=== PATIENT | male | born 1995 | race Caucasian/White ===

== ENCOUNTER 2020-09-13 11:25 | Inpatient (IN) | payer OTHER, SELFPAY ==
[2020-09-13] MEDS ORDERED: Fentanyl 100 MCG/2 ML VIAL ONE ×2 (11:27→11:46)
[2020-09-13] MEDS ORDERED: Midazolam HCl 2 mg/2 ml Vial ONE (11:37)
[2020-09-13] MEDS ORDERED: Iopamidol 370 76% 100 ML VIAL ONE (11:39)
[2020-09-13] MEDS ORDERED: fentaNYL Citrate/PF 2,000 MCG in Sodium Chloride 0.9% 60 ML IV SCH (11:45)
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
[2020-09-13] MEDS ORDERED: Boostrix 0.5 ML (Tdap) VIAL ONE (12:15)
[2020-09-13] MEDS ORDERED: levETIRAcetam in NS 100 ML ONE (12:20)
[2020-09-13] MEDS ORDERED: Lorazepam 2 MG/ML VIAL ONE (12:21)
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
[2020-09-13 12:27] LABS: Hemoglobin 14.4 g/dL (14.0-18.0); Mean Corpuscular HGB CONC 33.9 g/dL (32.0-36.0); Mean Corpuscular Hemoglobin 33.2 pg (27.0-31.0); Mean Corpuscular Volume 98.1 fL (78.0-98.0); Mean Platelet Volume 8.6 fL (7.4-10.4); Platelet Count 191 thou/uL (130-400); RBC Distribution Width 11.4 % (11.5-14.5); Red Blood Cell (RBC) Count 4.33 mill/uL (4.70-6.10); White Blood Cell (WBC) Count 22.8 thou/uL (4.8-10.8)
[2020-09-13 12:35] LABS: INR-International Normal Ratio 1.2; Prothrombin Time 15.5 sec (12.0-14.7)
[2020-09-13 12:41] LABS: Acetaminophen Less than 6.0 mcg/mL (10.0-30.0); Alcohol Less than 10 mg/dL (Less than 10); CK (CPK) 1106 U/L (30-200); Salicylate Less than 8.0 mg/dL (15.0-30.0)
[2020-09-13 12:41] LABS: Actual Bicarbonate (HCO3a) 19.4 mEq/L (22-28); Analyzer IN Cardio ER; Base Excess (BEa) -7.1 mEq/L (-2.0 to +3.0); CO2 Tension 42.6 mmHg (35.0-45.0); Calcium, Ionized (arterial) 1.11 mmol/L (1.12-1.30); Carboxyhemoglobin (COHb) 0.3 gm% (0.0-3.0); Hemoglobin (Hb) 15.2 g/dL (14.0-18.0); O2 Tension (PaO2), arterial 195.5 mmHg (80.0-100.0); pH, Arterial 7.28 (7.35-7.45)
[2020-09-13 12:42] LABS: ALT (SGPT) 135 U/L (8-55); AST (SGOT) 146 U/L (5-34); Albumin 3.4 g/dL (3.5-5.0); Alcohol Less than 10 mg/dL (Less than 10); Alkaline Phosphatase 46 U/L (40-110); Anion Gap 13 mmol/L (10-20); BUN (Urea Nitrogen) 17 mg/dL (8.9-20.6); Bilirubin, Total 0.7 mg/dL (0.2-1.2); Calc. Creatinine Clearance 0 mL/min (70-130); Calcium 7.3 mg/dL (7.8-10.44); Carbon Dioxide 18 mmol/L (22-29); Chloride 106 mmol/L (98-107); Globulin 2.1 g/dL (2.4-3.5); Glucose 123 mg/dL (70-105); Lipase 99 U/L (8-78); Potassium 4.2 mmol/L (3.5-5.1); Protein, Total 5.5 g/dL (6.0-8.3); Sodium 133 mmol/L (136-145)
[2020-09-13 12:42] LABS: Band 18 % (5-11); Eosinophils 1 % (0-10); Lymphocytes 7 % (21-51); MDiff Complete? YES; Metamyelocyte 1 % (0-0); Monocytes 6 % (0-10); Myelocyte 1 % (0-0); Neutrophil 66 % (42-75); PTT 27.9 sec (22.9-36.1); Platelet Morphology Comment Appears Adequate; RBC Morphology Normal
[2020-09-13 12:43] LABS: Puncture Site LRA
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
[2020-09-13 12:49] LABS: Bilirubin Negative (Negative); Blood, Urine 3+ (Negative); Clarity Turbid (Clear); Glucose, Urine (Dipstick) 100 mg/dL (Negative); Ketone, Urine Trace mg/dL (Negative); Leukocyte Negative Leu/uL (Negative); Nitrite Negative (Negative); Protein, Urine (Dipstick) 300 mg/dL (Neg-Trace); RBC/HPF Greater than 50 HPF (0-3); Specific Gravity, Urine 1.016 (1.002-1.036); Squamous Epithelial 0-3 HPF (0-3); Urobilinogen Normal mg/dL (Less than 2); WBC/HPF Greater than 50 HPF (0-3); pH, Urine 6.5 (5.0-9.0)
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
[2020-09-13 12:53] LABS: Amphetamine Not Detected (NotDetected); Barbiturates Screen Not Detected (NotDetected); Benzodiazepine Screen Not Detected (NotDetected); Cocaine Metabolite Screen Not Detected (NotDetected); Medtox Control Line Valid? VALID (VALID); Medtox Reader # READER 4; Methadone Not Detected (NotDetected); Methamphetamine Not Detected (NotDetected); Opiate Screen Not Detected (NotDetected); Oxycodone Screen Not Detected (NotDetected); Phencyclidine (PCP) Not Detected (NotDetected); THC/Cannabinoid Screen Detected (NotDetected); Tricyclic Screen Not Detected (NotDetected)
[2020-09-13 12:58] LABS: Bacteria/HPF None Seen HPF (None Seen)
[2020-09-13 13:27] LABS: SARS-CoV-2 NAA Rapid Test Not Detected (NotDetected)
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
[2020-09-13] MEDS: Sodium Chloride 0.9% 1,000 ML IV SCH (14:30)
[2020-09-13] MEDS ORDERED: Insulin Regular 300 UNITS/3 ML VIAL SC PRN (14:36)
[2020-09-13] MEDS ORDERED: hydrALAZINE 20 MG/ML VIAL SLOW IVP PRN (14:36)
[2020-09-13] MEDS ORDERED: Ondansetron PF 4 MG/2 ML Vial IVP PRN (14:36)
[2020-09-13] MEDS ORDERED: Ventilator Sedation Protocol 1 EACH FS SCH (14:36)
[2020-09-13] MEDS ORDERED: Dextrose 5% in Water 1,000 ML IV PRN (14:36)
[2020-09-13] MEDS ORDERED: Dextrose 50% Abboject 50 ML SYRINGE SLOW IVP PRN (14:36)
[2020-09-13] MEDS ORDERED: Ondansetron ODT 4 MG TAB PO PRN (14:36)
[2020-09-13] MEDS ORDERED: Lorazepam 2 MG/ML VIAL SLOW IVP PRN (14:36)
[2020-09-13] MEDS ORDERED: Morphine 2 MG/ML VIAL SLOW IVP PRN (14:45)
[2020-09-13] MEDS ORDERED: Propofol BOLUS 1,000 MG/100 ML VIAL IV PRN (14:45)
[2020-09-13] MEDS ORDERED: Fentanyl BOLUS 250 ML IVPB PRN (14:45)
[2020-09-13] MEDS ORDERED: DISCONTINUE PREVIOUS NARCOTIC PAIN MEDICATIONS AND BENZODIAZEPINES FS SCH (14:45)
[2020-09-13 15:18] LABS: Actual Bicarbonate (HCO3a) 17.3 mEq/L (22-28); Base Excess (BEa) -7.9 mEq/L (-2.0 to +3.0); CO2 Tension 34.7 mmHg (35.0-45.0); Calcium, Ionized (arterial) 1.13 mmol/L (1.12-1.30); Carboxyhemoglobin (COHb) 0.3 gm% (0.0-3.0); Hemoglobin (Hb) 14.3 g/dL (14.0-18.0); O2 Tension (PaO2), arterial 110.2 mmHg (80.0-100.0); Potassium - ABG Lab 3.81 mmol/L (3.70-5.30); pH, Arterial 7.32 (7.35-7.45)
[2020-09-13 15:21] LABS: Lactic Acid 1.3 mmol/L (0.5-2.2)
[2020-09-13 15:24] LABS: Puncture Site RBA
[2020-09-13 15:25] LABS: ALV-art Gradient 131.625 mmHg (0-20)
[2020-09-13] MEDS ORDERED: Sodium Chloride 0.9% 1,000 ML IV SCH (15:30)
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
[2020-09-13] MEDS: CEFAZOLIN 2 GM in Premix Bag 1 BAG IVPB SCH (20:36)
[2020-09-13] MEDS: Acetaminophen 650 MG/20.3 ML UDCUP PO PRN (20:41)
[2020-09-14] MEDS: levETIRAcetam in NS 1,000 MG in Premix Bag 1 BAG IVPB SCH ×2 (00:21→12:00)
[2020-09-14] MEDS: Sodium Chloride 0.9% 1,000 ML IV SCH ×3 (00:27→15:51)
[2020-09-14] MEDS: fentaNYL Citrate/PF 2,000 MCG in Sodium Chloride 0.9% 60 ML IV SCH ×3 (02:55→23:49)
[2020-09-14] MEDS: Propofol 1,000 MG/100 ML VIAL IV PRN ×2 (02:57→15:48)
[2020-09-14 03:51] LABS: #Eosinphils 0.1 thou/uL (0.0-0.7); #Lymphocytes 1.3 thou/uL (1.20-3.40); #Monocytes 0.7 thou/uL (0.11-0.59); #Neutrophils 7.5 thou/uL (1.40-6.50); %Basophils 0.2 % (0.0-1.0); %Eosinophils 0.7 % (0.0-10.0); %Lymphocytes 13.5 % (21.0-51.0); %Monocytes 7.1 % (0.0-10.0); %Neutrophils 78.5 % (42.0-75.0); Hemoglobin 12.7 g/dL (14.0-18.0); Mean Corpuscular HGB CONC 33.7 g/dL (32.0-36.0); Mean Corpuscular Hemoglobin 33.3 pg (27.0-31.0); Mean Corpuscular Volume 98.9 fL (78.0-98.0); Mean Platelet Volume 9.2 fL (7.4-10.4); Platelet Count 149 thou/uL (130-400); RBC Distribution Width 11.5 % (11.5-14.5); White Blood Cell (WBC) Count 9.6 thou/uL (4.8-10.8)
[2020-09-14 04:05] LABS: Anion Gap 14 mmol/L (10-20); BUN (Urea Nitrogen) 14 mg/dL (8.9-20.6); CK (CPK) 2467 U/L (30-200); Calc. Creatinine Clearance 131 mL/min (70-130); Calcium 7.7 mg/dL (7.8-10.44); Carbon Dioxide 20 mmol/L (22-29); Chloride 110 mmol/L (98-107); Glucose 100 mg/dL (70-105); Magnesium 1.4 mg/dL (1.6-2.6); Phosphorus 3.8 mg/dL (2.3-4.7); Sodium 140 mmol/L (136-145)
[2020-09-14] MEDS: CEFAZOLIN 2 GM in Premix Bag 1 BAG IVPB SCH ×3 (04:28→20:37)
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
[2020-09-14 07:39] LABS: Actual Bicarbonate (HCO3a) 18.1 mEq/L (22-28); Analyzer IN Cardio ER; Base Excess (BEa) -7.2 mEq/L (-2.0 to +3.0); CO2 Tension 35.9 mmHg (35.0-45.0); Calcium, Ionized (arterial) 1.17 mmol/L (1.12-1.30); Carboxyhemoglobin (COHb) 0.4 gm% (0.0-3.0); Hemoglobin (Hb) 13.2 g/dL (14.0-18.0); Potassium - ABG Lab 4.06 mmol/L (3.70-5.30); pH, Arterial 7.32 (7.35-7.45)
--- NOTE | 2020-09-14 08:20 | CT ---
PRELIMINARY REPORT/[facility]/EMERGENCY AFTER HOURS PROCEDURE EXAM: CT Head Without Intravenous Contrast. CLINICAL HISTORY: FOLLOW UP STUDY. TECHNIQUE: Axial computed tomography images of the head/brain without intravenous contrast. COMPARISON: 09/13/2020. FINDINGS: There remains a 1.2 cm area of hyperdensity in the thalamus. This has not changed. There is a small amount of blood identified in the posterior horn of the left lateral ventricle unchanged. There is a few small punctate areas of hyperdensity in the bilateral frontal lobes. The findings have not significantly changed since prior study. There remains soft tissue swelling in the left temporal scalp. The visualized paranasal sinuses and the mastoid or cells remain clear. There are 2 small ra diodensities embedded in the left temporal scalp, glass in these areas as possible. No acute skull fracture. IMPRESSION: There has been no significant change in the appearance of the brain imaging since prior study. There remains a small left thalamus hemorrhage measuring 1.2 cm. There is a an acute slight intraventricular hemorrhage in the posterior horn of the left lateral ventricle. There remains a few small punctate areas of hyperdensity in the bilateral frontal lobes, cerebral contusion is suspected.. ELECTRONICALLY SIGNED BY: Freda Turner DO Sep 14, 2020 3:58:28 AM BELT BACK OPERATOR This report is intended for review by the ordering physician only, in accordance of law. If you recei ve this report in error, please call [facility] at [phone]. FINAL REPORT Final interpretation Head CT without contrast: 09/14/2020 COMPARISON: 09/13/2020. HISTORY: Reevaluate intracranial hemorrhage. FINDINGS: The visualized paranasal sinuses and mastoid air cells appear well-aerated. No displaced calvarial fr acture is noted. Intracranial pressure monitoring device present within the right frontal region. Intra-axial hemorrhage in left thalamus measures 1.3 cm, similar when compared to the prior examinati on, and suspicious for hemorrhagic shear injury. There are punctate scattered foci of hyperdensity within bilateral frontal lobes near the vertex suggesting multiple foci of subtle hemorrhagic shear i njury. There is blood within the posterior horn of the left lateral ventricle, similar when compared to prior imaging. Questionable small volume subarachnoid blood noted near the vertex bilaterally with probable small vo lume subarachnoid blood within the interpeduncular cistern. There are a few radiopaque foreign bodies within the scalp laterally on the left. IMPRESSION: Findings suspicious for multifocal hemorrhagic shear injury, most conspicuous within the left thalamu s, similar when compared to prior imaging. Probable small volume subarachnoid hemorrhage. Blood again seen within the left lateral ventricle. CODE QA Transcribed Date/Time: 09/14/2020 9:00 AM
[2020-09-14] MEDS: Acetaminophen 650 MG/20.3 ML UDCUP PO PRN ×2 (08:27→12:23)
[2020-09-14] MEDS ORDERED: FLU VACC QS2020-21(6MOS UP)/PF 60 MCG/0.5 ML SYRINGE IM ONE (09:00)
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
[2020-09-14] MEDS ORDERED: Vecuronium 10 MG VIAL ONE (09:12)
[2020-09-14] MEDS ORDERED: Vecuronium 10 MG VIAL IVP SCH (09:15)
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
[2020-09-14 11:36] LABS: O2 Tension (PaO2), arterial 58.9 mmHg (80.0-100.0)
[2020-09-14 11:37] LABS: ALV-art Gradient 181.425 mmHg (0-20); Puncture Site LRA
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
[2020-09-14 11:50] LABS: Actual Bicarbonate (HCO3a) 21.2 mEq/L (22-28); Analyzer IN Cardio ER; Base Excess (BEa) -4.8 mEq/L (-2.0 to +3.0); CO2 Tension 42.3 mmHg (35.0-45.0); Calcium, Ionized (arterial) 1.16 mmol/L (1.12-1.30); Carboxyhemoglobin (COHb) 0.3 gm% (0.0-3.0); Hemoglobin (Hb) 13.2 g/dL (14.0-18.0); O2 Tension (PaO2), arterial 99.4 mmHg (80.0-100.0); Potassium - ABG Lab 4.08 mmol/L (3.70-5.30); pH, Arterial 7.32 (7.35-7.45)
[2020-09-14 11:54] LABS: ALV-art Gradient 418.125 mmHg (0-20); Puncture Site RRA
[2020-09-14] MEDS: cefTRIAXone\\ROCEPHIN 1 GM in Sodium Chloride 0.9% 100 ML IVPB SCH (12:04)
[2020-09-14] MEDS ORDERED: Digoxin 0.5 MG/2 ML AMP ONE (12:48)
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
[2020-09-14] MEDS ORDERED: Magnesium Sulfate 3 GM in Sodium Chloride 0.9% 100 ML IVPB SCH (22:00)
[2020-09-15] MEDS: levETIRAcetam in NS 1,000 MG in Premix Bag 1 BAG IVPB SCH ×2 (00:50→13:31)
[2020-09-15] MEDS: Sodium Chloride 0.9% 1,000 ML IV SCH ×3 (00:51→18:05)
[2020-09-15] MEDS: Propofol 1,000 MG/100 ML VIAL IV PRN ×3 (02:35→20:07)
[2020-09-15] MEDS: CEFAZOLIN 2 GM in Premix Bag 1 BAG IVPB SCH ×3 (03:04→20:07)
[2020-09-15 04:14] LABS: #Eosinphils 0.3 thou/uL (0.0-0.7); #Lymphocytes 0.9 thou/uL (1.20-3.40); #Monocytes 0.4 thou/uL (0.11-0.59); #Neutrophils 6.1 thou/uL (1.40-6.50); %Basophils 0.1 % (0.0-1.0); %Eosinophils 3.8 % (0.0-10.0); %Lymphocytes 11.6 % (21.0-51.0); %Neutrophils 79.6 % (42.0-75.0); Hemoglobin 10.7 g/dL (14.0-18.0); Mean Corpuscular HGB CONC 33.8 g/dL (32.0-36.0); Mean Corpuscular Hemoglobin 33.2 pg (27.0-31.0); Mean Corpuscular Volume 98.3 fL (78.0-98.0); Mean Platelet Volume 9.8 fL (7.4-10.4); Platelet Count 105 thou/uL (130-400); Platelet Morphology Comment Appears Decreased; RBC Distribution Width 11.3 % (11.5-14.5); Red Blood Cell (RBC) Count 3.21 mill/uL (4.70-6.10); White Blood Cell (WBC) Count 7.6 thou/uL (4.8-10.8)
[2020-09-15 04:18] LABS: Anion Gap 12 mmol/L (10-20); BUN (Urea Nitrogen) 7 mg/dL (8.9-20.6); CK (CPK) 1389 U/L (30-200); Calc. Creatinine Clearance 157 mL/min (70-130); Carbon Dioxide 22 mmol/L (22-29); Chloride 108 mmol/L (98-107); Glucose 116 mg/dL (70-105); Phosphorus 1.4 mg/dL (2.3-4.7); Potassium 4.3 mmol/L (3.5-5.1); Sodium 138 mmol/L (136-145)
[2020-09-15] MEDS ORDERED: MAGNESIUM IVPB SCH (05:30)
[2020-09-15] MEDS ORDERED: Sodium Phosphate 30 MMOL in Sodium Chloride 0.9% 250 ML 250 ML IVPB SCH (06:00)
--- NOTE | 2020-09-15 09:03 | RAD ---
PORTABLE CHEST 1 VIEW: Date: 09/15/2020 Time: 0451 hours HISTORY: Left-sided chest tube. FINDINGS/IMPRESSION: Allowing for differences in technique, no significant interval change is seen since the previous day' s exam. POS: HILARIO
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
--- NOTE | 2020-09-15 10:17 | PRG ---
DATE OF SERVICE: 09/15/2020 The patient is seen and examined. I agree with Kelli Cates's evaluation on 09/15/2020. While on sedation, Mr. Patel has an ICP in the low teens or below. Off sedation, he does follow commands, but is extremely agitated and wild at all 4 extremities in a purposeful fashion. We removed the ICP monitor today. He will be weaned from the ventilator as appropriate by the Trauma Service. His cervical spine can likely be cleared clinically once he is alert enough to cooperate with exam. Job ID: [id number]
[2020-09-15] MEDS: cefTRIAXone\\ROCEPHIN 1 GM in Sodium Chloride 0.9% 100 ML IVPB SCH (10:37)
[2020-09-15] MEDS: Acetaminophen 650 MG/20.3 ML UDCUP PO PRN ×2 (10:37→22:24)
[2020-09-15] MEDS: fentaNYL Citrate/PF 2,000 MCG in Sodium Chloride 0.9% 60 ML IV SCH (12:16)
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
[2020-09-16] MEDS: levETIRAcetam in NS 1,000 MG in Premix Bag 1 BAG IVPB SCH ×3 (00:37→23:40)
[2020-09-16] MEDS: Sodium Chloride 0.9% 1,000 ML IV SCH ×3 (00:40→17:17)
[2020-09-16] MEDS: fentaNYL Citrate/PF 2,000 MCG in Sodium Chloride 0.9% 60 ML IV SCH ×2 (00:44→13:43)
[2020-09-16] MEDS: Lorazepam 2 MG/ML VIAL SLOW IVP PRN ×2 (00:55→08:50)
[2020-09-16 04:05] LABS: #Eosinphils 0.4 thou/uL (0.0-0.7); #Lymphocytes 0.7 thou/uL (1.20-3.40); #Monocytes 0.4 thou/uL (0.11-0.59); #Neutrophils 4.4 thou/uL (1.40-6.50); %Basophils 0.4 % (0.0-1.0); %Eosinophils 6.5 % (0.0-10.0); %Lymphocytes 11.8 % (21.0-51.0); %Monocytes 5.9 % (0.0-10.0); %Neutrophils 75.4 % (42.0-75.0); Mean Corpuscular HGB CONC 32.9 g/dL (32.0-36.0); Mean Corpuscular Hemoglobin 32.8 pg (27.0-31.0); Mean Corpuscular Volume 99.7 fL (78.0-98.0); Mean Platelet Volume 9.8 fL (7.4-10.4); Platelet Count 98 thou/uL (130-400); RBC Distribution Width 11.5 % (11.5-14.5); Red Blood Cell (RBC) Count 2.73 mill/uL (4.70-6.10); White Blood Cell (WBC) Count 5.8 thou/uL (4.8-10.8)
[2020-09-16] MEDS: Propofol 1,000 MG/100 ML VIAL IV PRN ×2 (04:12→12:36)
[2020-09-16] MEDS: CEFAZOLIN 2 GM in Premix Bag 1 BAG IVPB SCH (04:12)
[2020-09-16 04:58] LABS: Anion Gap 11 mmol/L (10-20); BUN (Urea Nitrogen) 8 mg/dL (8.9-20.6); Calc. Creatinine Clearance 167 mL/min (70-130); Carbon Dioxide 23 mmol/L (22-29); Chloride 110 mmol/L (98-107); Glucose 99 mg/dL (70-105); Magnesium 1.6 mg/dL (1.6-2.6); Phosphorus 1.7 mg/dL (2.3-4.7); Potassium 3.6 mmol/L (3.5-5.1); Sodium 140 mmol/L (136-145)
--- NOTE | 2020-09-16 07:13 | PRG ---
DATE OF SERVICE: 09/16/2020 The patient has not had any overnight events. Off sedation, he continues to move all 4s. He is purposeful and follow some commands. There are plans to take him for surgery with Dr. Truong for his hand. Hopefully, he can be extubated following the surgery. Job ID: [id number]
[2020-09-16] MEDS ORDERED: Potassium Phosphate 30 MMOL in Sodium Chloride 0.9% 250 ML 250 ML IVPB SCH (08:15)
[2020-09-16] MEDS ORDERED: Magnesium 2 GM/50 ML 2 GM in Premix Bag 1 BAG IVPB SCH (08:15)
[2020-09-16] MEDS: Famotidine/PF 20 mg/2ml Vial SLOW IVP SCH ×2 (08:50→22:43)
--- NOTE | 2020-09-16 10:40 | RAD ---
EXAM: XR Chest 1 View Portable PROVIDED CLINICAL HISTORY: Follow-up left chest tube. COMPARISON: 09/15/2020 FINDINGS: Nasogastric tube, endotracheal tube, and left-sided thoracostomy tube remain in place and unchanged i n position. No obvious left-sided pneumothorax is seen, and no left pleural effusion is identified. Parenchymal density is seen in the retrocardiac region left lung base which may represent aspiration pneumonitis, atelectasis, or pneumonia. Opacity is also again seen at the right lung base which may represent aspiration pneumonitis and/or volume loss. No other interval change. IMPRESSION: 1. Lines and tubes remain unchanged in position. No left-sided pneumothorax is seen. 2. Bibasilar parenchymal opacities which may represent volume loss and/or aspiration pneumonitis.
[2020-09-16] MEDS: cefTRIAXone\\ROCEPHIN 1 GM in Sodium Chloride 0.9% 100 ML IVPB SCH (11:18)
[2020-09-16] MEDS ORDERED: Sodium Chloride 0.9% 10 ML ONE ×2 (11:46→20:00)
[2020-09-16] MEDS: Acetaminophen 650 MG/20.3 ML UDCUP PO PRN (13:46)
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
[2020-09-16] MEDS ORDERED: Rocuronium Bromide 10 MG/ML (10ML VIAL) ONE (14:28)
[2020-09-16] MEDS ORDERED: Glycopyrrolate 0.2 MG/ML 5 ML SYRINGE ONE (14:28)
[2020-09-16] MEDS ORDERED: Ondansetron PF 4 MG/2 ML Vial ONE (14:28)
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
[2020-09-16] MEDS ORDERED: Thrombin 5000 UNITS/5 ML VIAL ONE (19:59)
[2020-09-16] MEDS ORDERED: Bupivacaine PF 0.5% 30 ML VIAL ONE (19:59)
[2020-09-16] MEDS ORDERED: Bacitracin Zinc Ointment 30 gm TUBE ONE (19:59)
[2020-09-16] MEDS ORDERED: Ketamine 50 MG/ML (10ML VIAL) ONE (20:31)
[2020-09-17] MEDS: Sodium Chloride 0.9% 1,000 ML IV SCH ×3 (01:22→19:16)
[2020-09-17 04:07] LABS: #Eosinphils 0.7 thou/uL (0.0-0.7); #Lymphocytes 1.2 thou/uL (1.20-3.40); #Monocytes 0.4 thou/uL (0.11-0.59); #Neutrophils 4.5 thou/uL (1.40-6.50); %Basophils 0.4 % (0.0-1.0); %Eosinophils 9.8 % (0.0-10.0); %Lymphocytes 18.2 % (21.0-51.0); %Monocytes 5.5 % (0.0-10.0); Hemoglobin 9.8 g/dL (14.0-18.0); Mean Corpuscular HGB CONC 32.7 g/dL (32.0-36.0); Mean Corpuscular Hemoglobin 33.1 pg (27.0-31.0); Platelet Count 81 thou/uL (130-400); RBC Distribution Width 11.4 % (11.5-14.5); Red Blood Cell (RBC) Count 2.97 mill/uL (4.70-6.10); White Blood Cell (WBC) Count 6.8 thou/uL (4.8-10.8)
[2020-09-17 04:25] LABS: Anion Gap 17 mmol/L (10-20); BUN (Urea Nitrogen) 8 mg/dL (8.9-20.6); Calc. Creatinine Clearance 170 mL/min (70-130); Carbon Dioxide 19 mmol/L (22-29); Chloride 112 mmol/L (98-107); Glucose 101 mg/dL (70-105); Magnesium 1.7 mg/dL (1.6-2.6); Phosphorus 3.2 mg/dL (2.3-4.7); Potassium 4.3 mmol/L (3.5-5.1); Sodium 144 mmol/L (136-145)
[2020-09-17] MEDS: Acetaminophen 650 MG/20.3 ML UDCUP PO PRN (04:30)
[2020-09-17] MEDS ORDERED: Lorazepam 2 MG/ML VIAL ONE ×2 (05:38→09:27)
[2020-09-17] MEDS: fentaNYL Citrate/PF 2,000 MCG in Sodium Chloride 0.9% 60 ML IV SCH ×2 (06:22→19:20)
[2020-09-17 07:25] LABS: Actual Bicarbonate (HCO3a) 23.2 mEq/L (22-28); CO2 Tension 41.8 mmHg (35.0-45.0); Calcium, Ionized (arterial) 1.15 mmol/L (1.12-1.30); Carboxyhemoglobin (COHb) 0.3 gm% (0.0-3.0); Hemoglobin (Hb) 10.6 g/dL (14.0-18.0); Potassium - ABG Lab 3.85 mmol/L (3.70-5.30); pH, Arterial 7.36 (7.35-7.45)
[2020-09-17 07:29] LABS: Puncture Site RRA
[2020-09-17] MEDS ORDERED: Sodium Phosphate 15 MMOL in Sodium Chloride 0.9% 250 ML 250 ML IVPB SCH (07:45)
[2020-09-17] MEDS ORDERED: Magnesium 2 GM/50 ML 2 GM in Premix Bag 1 BAG IVPB SCH (07:45)
--- NOTE | 2020-09-17 07:58 | PRG ---
DATE OF SERVICE: 09/17/2020 The patient remains stable in the ICU. Yesterday, he did have his hand repaired surgically by Dr. Truong. He has still not been extubated at this time, but there are plans to possibly do this later today. Unfortunately, his exam is quite limited today because he has recently received additional sedation. Nursing reports off sedation. The patient wakes up, will follow some commands, but is quite combative and attempts to pull out his tubing. Hopefully he can be extubated later today. He should not recieve any anticoagulation for the next 2 weeks. Job ID: [id number] [facility]
--- NOTE | 2020-09-17 08:20 | RAD ---
EXAM: Chest one view: HISTORY: Low oxygen saturation, left chest tube COMPARISON: 09/13/2020 FINDINGS: NG tube, endotracheal tube, left chest tubes remain in place. Heart size: Within normal limits. Lungs: Progressive bilateral pleural effusions and bilateral alveolar parenchymal changes throughout both lungs No significant new process. No significant pneumothorax. IMPRESSION: Worsening bilateral pleural effusions and bilateral diffuse alveolar opacity changes throughout both lungs. Continued short-term follow-up.
[2020-09-17] MEDS: Saccharomyces boulardii 250 MG CAP PO SCH ×2 (08:37→19:16)
[2020-09-17] MEDS: Famotidine/PF 20 mg/2ml Vial SLOW IVP SCH ×2 (08:37→19:16)
--- NOTE | 2020-09-17 09:11 | PRG ---
DATE OF SERVICE: 09/17/2020 Mr. Patel is sedated due to discomfort, but does sluggishly open his eyes and moves all fours briskly. The nurse reports that off sedation, he continues to follow commands. From a neurosurgical perspective, no further intervention is planned. We will arrange follow up head CT in 4 weeks. He can otherwise be mobilized. He currently remains intubated for pulmonary reasons. With respect to anticoagulation, I would recommend holding off on this for 2 weeks if possible and suspect by that time, he will be ambulatory. Job ID: [id number]
[2020-09-17] MEDS ORDERED: Lorazepam 2 MG/ML VIAL SLOW IVP SCH (09:30)
[2020-09-17] MEDS: Propofol 1,000 MG/100 ML VIAL IV PRN ×2 (09:40→17:50)
[2020-09-17] MEDS ORDERED: Iopamidol-370 76% 500 ML 1 ML ONE (10:17)
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
[2020-09-17] MEDS: cefTRIAXone\\ROCEPHIN 1 GM in Sodium Chloride 0.9% 100 ML IVPB SCH (11:08)
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
[2020-09-17] MEDS: levETIRAcetam in NS 1,000 MG in Premix Bag 1 BAG IVPB SCH (13:39)
[2020-09-17 15:02] LABS: Actual Bicarbonate (HCO3a) 22.6 mEq/L (22-28); Base Excess (BEa) -1.5 mEq/L (-2.0 to +3.0); CO2 Tension 35.4 mmHg (35.0-45.0); Calcium, Ionized (arterial) 1.12 mmol/L (1.12-1.30); Carboxyhemoglobin (COHb) 0.3 gm% (0.0-3.0); Hemoglobin (Hb) 10.1 g/dL (14.0-18.0); O2 Tension (PaO2), arterial 88.3 mmHg (80.0-100.0); pH, Arterial 7.42 (7.35-7.45)
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
[2020-09-18] MEDS: Propofol 1,000 MG/100 ML VIAL IV PRN ×5 (00:27→20:52)
[2020-09-18] MEDS: levETIRAcetam in NS 1,000 MG in Premix Bag 1 BAG IVPB SCH ×2 (00:27→13:00)
[2020-09-18] MEDS: Sodium Chloride 0.9% 1,000 ML IV SCH ×3 (03:29→22:38)
[2020-09-18 04:02] LABS: #Eosinphils 0.6 thou/uL (0.0-0.7); #Lymphocytes 1.3 thou/uL (1.20-3.40); #Monocytes 0.6 thou/uL (0.11-0.59); #Neutrophils 4.2 thou/uL (1.40-6.50); %Basophils 0.1 % (0.0-1.0); %Eosinophils 8.5 % (0.0-10.0); %Lymphocytes 19.2 % (21.0-51.0); %Monocytes 9.7 % (0.0-10.0); %Neutrophils 62.5 % (42.0-75.0); Hemoglobin 9.5 g/dL (14.0-18.0); Mean Corpuscular HGB CONC 34.1 g/dL (32.0-36.0); Mean Corpuscular Hemoglobin 33.3 pg (27.0-31.0); Mean Corpuscular Volume 97.8 fL (78.0-98.0); Mean Platelet Volume 8.4 fL (7.4-10.4); Platelet Count 171 thou/uL (130-400); RBC Distribution Width 11.5 % (11.5-14.5); Red Blood Cell (RBC) Count 2.85 mill/uL (4.70-6.10); White Blood Cell (WBC) Count 6.6 thou/uL (4.8-10.8)
[2020-09-18 04:03] LABS: Anion Gap 14 mmol/L (10-20); BUN (Urea Nitrogen) 10 mg/dL (8.9-20.6); Calc. Creatinine Clearance 185 mL/min (70-130); Calcium 7.9 mg/dL (7.8-10.44); Carbon Dioxide 20 mmol/L (22-29); Chloride 111 mmol/L (98-107); Glucose 110 mg/dL (70-105); Magnesium 1.6 mg/dL (1.6-2.6); Phosphorus 2.9 mg/dL (2.3-4.7); Potassium 3.6 mmol/L (3.5-5.1); Sodium 141 mmol/L (136-145)
[2020-09-18] MEDS: fentaNYL Citrate/PF 2,000 MCG in Sodium Chloride 0.9% 60 ML IV SCH ×2 (05:14→16:32)
[2020-09-18] MEDS ORDERED: Magnesium 2 GM/50 ML 2 GM in Premix Bag 1 BAG IVPB SCH (06:15)
[2020-09-18] MEDS ORDERED: Heparin 0 ML ONE (06:18)
[2020-09-18] MEDS ORDERED: Potassium Phosphate 15 MMOL in Sodium Chloride 0.9% 250 ML 250 ML IVPB SCH (06:30)
--- NOTE | 2020-09-18 08:19 | RAD ---
PORTABLE CHEST: HISTORY: Pneumonia followup. COMPARISON: 09/17/2020. FINDINGS/IMPRESSION: Hazy alveolar infiltrate in the right lower lung and infrahilar region is slightly more prominent tod ay. Left lung is better aerated and appears improved today, although there is some persistent left b asilar atelectasis or infiltrate. Probable small effusions. POS: [facility]
[2020-09-18 08:25] LABS: Actual Bicarbonate (HCO3a) 24.6 mEq/L (22-28); Base Excess (BEa) 0.9 mEq/L (-2.0 to +3.0); CO2 Tension 35.4 mmHg (35.0-45.0); Calcium, Ionized (arterial) 1.13 mmol/L (1.12-1.30); Carboxyhemoglobin (COHb) 0.3 gm% (0.0-3.0); Hemoglobin (Hb) 9.9 g/dL (14.0-18.0); O2 Tension (PaO2), arterial 67.5 mmHg (80.0-100.0); Potassium - ABG Lab 3.75 mmol/L (3.70-5.30); pH, Arterial 7.46 (7.35-7.45)
[2020-09-18 08:27] LABS: Puncture Site RRA
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
[2020-09-18] MEDS: Famotidine/PF 20 mg/2ml Vial SLOW IVP SCH ×2 (08:42→20:54)
[2020-09-18] MEDS: Polyethylene Glycol 3350 17 GM Packet PO SCH (08:42)
[2020-09-18] MEDS: Acetaminophen 650 MG/20.3 ML UDCUP PO SCH ×4 (08:42→20:54)
[2020-09-18] MEDS: Senokot S 8.6-50 MG TAB PO SCH ×2 (08:43→20:54)
[2020-09-18] MEDS: Saccharomyces boulardii 250 MG CAP PO SCH ×2 (08:43→20:54)
[2020-09-18] MEDS ORDERED: Iopamidol 370 76% 50 ML VIAL FS ONE (10:14)
[2020-09-18] MEDS: cefTRIAXone\\ROCEPHIN 1 GM in Sodium Chloride 0.9% 100 ML IVPB SCH (10:19)
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
[2020-09-19] MEDS: levETIRAcetam in NS 1,000 MG in Premix Bag 1 BAG IVPB SCH ×2 (00:39→12:48)
[2020-09-19] MEDS: Acetaminophen 650 MG/20.3 ML UDCUP PO SCH ×5 (00:40→16:52)
[2020-09-19] MEDS: Propofol 1,000 MG/100 ML VIAL IV PRN ×2 (01:10→07:22)
[2020-09-19 03:54] LABS: #Eosinphils 0.5 thou/uL (0.0-0.7); #Lymphocytes 1.4 thou/uL (1.20-3.40); #Monocytes 0.8 thou/uL (0.11-0.59); #Neutrophils 3.9 thou/uL (1.40-6.50); %Basophils 0.2 % (0.0-1.0); %Eosinophils 8.2 % (0.0-10.0); %Lymphocytes 21.1 % (21.0-51.0); %Monocytes 11.5 % (0.0-10.0); Hemoglobin 10.1 g/dL (14.0-18.0); Mean Corpuscular Hemoglobin 33.1 pg (27.0-31.0); Mean Corpuscular Volume 97.3 fL (78.0-98.0); Mean Platelet Volume 8.8 fL (7.4-10.4); Platelet Count 174 thou/uL (130-400); RBC Distribution Width 11.7 % (11.5-14.5); Red Blood Cell (RBC) Count 3.05 mill/uL (4.70-6.10); White Blood Cell (WBC) Count 6.7 thou/uL (4.8-10.8)
[2020-09-19 04:23] LABS: Anion Gap 14 mmol/L (10-20); BUN (Urea Nitrogen) 14 mg/dL (8.9-20.6); Calc. Creatinine Clearance 185 mL/min (70-130); Carbon Dioxide 19 mmol/L (22-29); Chloride 113 mmol/L (98-107); Glucose 106 mg/dL (70-105); Magnesium 1.8 mg/dL (1.6-2.6); Phosphorus 3.9 mg/dL (2.3-4.7); Potassium 3.9 mmol/L (3.5-5.1); Sodium 142 mmol/L (136-145)
[2020-09-19] MEDS: fentaNYL Citrate/PF 2,000 MCG in Sodium Chloride 0.9% 60 ML IV SCH (04:30)
[2020-09-19] MEDS: Sodium Chloride 0.9% 1,000 ML IV SCH (04:31)
[2020-09-19] MEDS: Furosemide 20 MG/2 ML VIAL SLOW IVP SCH ×2 (08:14→16:27)
[2020-09-19] MEDS: Famotidine/PF 20 mg/2ml Vial SLOW IVP SCH ×2 (08:15→20:49)
[2020-09-19] MEDS: Saccharomyces boulardii 250 MG CAP PO SCH ×2 (08:15→20:50)
[2020-09-19] MEDS: Polyethylene Glycol 3350 17 GM Packet PO SCH (08:15)
[2020-09-19] MEDS: Senokot S 8.6-50 MG TAB PO SCH ×2 (08:15→20:50)
--- NOTE | 2020-09-19 08:54 | RAD ---
SEMIUPRIGHT FRONTAL CHEST: Date: 09/19/2020 COMPARISON: 09/18/2020. HISTORY: Pneumonia. FINDINGS: Stable endotracheal tube, nasogastric tube, and left-sided chest tube. Heart and mediastinal contours are stable. No discrete pneumothorax is evident on this examination. There is hazy nonspecific bibasilar air spac e disease, improved when compared to the prior exam. There are multiple incompletely assessed left-sided rib fractures. The osseous structures are not opt imally assessed on this examination. IMPRESSION: Stable lines and tubes. No discrete pneumothorax. There is hazy density in the lung bases suggesting a combination of air space disease and pleural fluid, improved. Continued follow-up is advised. POS: [facility]
[2020-09-19] MEDS: cefTRIAXone\\ROCEPHIN 1 GM in Sodium Chloride 0.9% 100 ML IVPB SCH (09:53)
[2020-09-19] MEDS ORDERED: Furosemide 20 MG/2 ML VIAL SLOW IVP SCH (12:00)
--- NOTE | 2020-09-19 12:13 | RAD ---
EXAM: 1 view chest PROVIDED CLINICAL HISTORY: Dobbhoff feeding tube placement. COMPARISON: Chest x-ray on 09/19/2020 FINDINGS: Left-sided thoracostomy tube remains in place and unchanged in and position. Endotracheal tube and na sogastric tube have been removed. A Dobbhoff feeding tube is now noted in place which is coiled overlying the left upper quadrant with tip overlying the body of the stomach. Airspace opacity is seen overlying the right lung base with patchy airspace opacity seen in the perih ilar regions and in the region of the lingula. No obvious pneumothorax is appreciated on this exam. Small right pleural effusion is again seen. Posterior left-sided rib fractures are again noted. No ot her interval change. IMPRESSION: 1. Interval placement of Dobbhoff feeding tube which is coiled overlying the left quadrant with tip o verlying the body of the stomach. 2. Bilateral patchy airspace opacities and right pleural effusion persist. 3. Endotracheal tube and nasogastric tubes have been removed.
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
[2020-09-19] MEDS ORDERED: Fentanyl 100 MCG/2 ML VIAL ONE (14:12)
[2020-09-19] MEDS ORDERED: Fentanyl 100 MCG/2 ML VIAL SLOW IVP SCH ×2 (14:15→19:15)
--- NOTE | 2020-09-19 14:36 | RAD ---
PORTABLE SUPINE CHEST: 09/19/20 INDICATIONS: Chest tube removal. COMPARISON: 09/19/20, 11:59 a.m. FINDINGS/IMPRESSION: The left chest tube has been removed. No evidence of significant pneumothorax identified. Lungs appea r aerated and clear with no significant interval change noted. Hazy atelectasis and/or infiltrate in the lower lung contreras appear stable. NG tube is unchanged. POS: [facility]
[2020-09-19] MEDS ORDERED: Diazepam 10 MG/2 ML SYRINGE IVP SCH (17:45)
[2020-09-19] MEDS ORDERED: Fentanyl 100 MCG/2 ML VIAL SLOW IVP PRN (19:00)
[2020-09-19] MEDS: Gabapentin 300 MG CAP PO SCH (20:49)
[2020-09-19] MEDS: Morphine 2 MG/ML VIAL SLOW IVP PRN (22:19)
[2020-09-20] MEDS: Acetaminophen 500 MG TAB PO SCH ×5 (00:29→23:29)
[2020-09-20] MEDS: traMADol HCl 50 MG TAB PO SCH ×5 (00:30→23:28)
[2020-09-20] MEDS: Furosemide 20 MG/2 ML VIAL SLOW IVP SCH ×3 (00:33→15:45)
[2020-09-20] MEDS: levETIRAcetam in NS 1,000 MG in Premix Bag 1 BAG IVPB SCH ×3 (00:33→23:29)
[2020-09-20 02:49] LABS: #Eosinphils 0.5 thou/uL (0.0-0.7); #Lymphocytes 1.2 thou/uL (1.20-3.40); #Monocytes 0.9 thou/uL (0.11-0.59); #Neutrophils 8.2 thou/uL (1.40-6.50); %Basophils 0.3 % (0.0-1.0); %Eosinophils 4.4 % (0.0-10.0); %Lymphocytes 10.9 % (21.0-51.0); %Monocytes 8.3 % (0.0-10.0); %Neutrophils 76.2 % (42.0-75.0); Mean Corpuscular HGB CONC 33.6 g/dL (32.0-36.0); Mean Corpuscular Hemoglobin 32.6 pg (27.0-31.0); Mean Corpuscular Volume 97.1 fL (78.0-98.0); Mean Platelet Volume 8.3 fL (7.4-10.4); Platelet Count 253 thou/uL (130-400); RBC Distribution Width 11.6 % (11.5-14.5); Red Blood Cell (RBC) Count 3.38 mill/uL (4.70-6.10); White Blood Cell (WBC) Count 10.8 thou/uL (4.8-10.8)
[2020-09-20 03:17] LABS: Anion Gap 19 mmol/L (10-20); BUN (Urea Nitrogen) 12 mg/dL (8.9-20.6); Calc. Creatinine Clearance 0 mL/min (70-130); Calcium 8.9 mg/dL (7.8-10.44); Carbon Dioxide 23 mmol/L (22-29); Chloride 104 mmol/L (98-107); Glucose 101 mg/dL (70-105); Magnesium 1.6 mg/dL (1.6-2.6); Phosphorus 4.8 mg/dL (2.3-4.7); Potassium 3.5 mmol/L (3.5-5.1); Sodium 142 mmol/L (136-145)
[2020-09-20] MEDS ORDERED: Magnesium Sulfate 3 GM in Sodium Chloride 0.9% 250 ML 250 ML IVPB SCH (04:00)
[2020-09-20] MEDS ORDERED: Potassium Chloride 20 MEQ TAB PO SCH (07:30)
[2020-09-20] MEDS ORDERED: Magnesium 2 GM/50 ML 2 GM in Premix Bag 1 BAG IVPB SCH (07:30)
--- NOTE | 2020-09-20 08:18 | RAD ---
Chest AP view INDICATION: History of follow-up exam COMPARISON: September 19, 2020 FINDINGS: Lungs: The bilateral lower lobe airspace opacities persist, right greater than left. Cardiac silhouette: Heart size is within normal limits. Pulmonary vasculature: Normal Pleural spaces: No pleural effusion or pneumothorax is demonstrated. Upper abdomen: Dobbhoff feeding tube tip is cold in the body with the tip in the region of the gastr ic fundus. There is partial visualization of an IVC filter. Osseous structures: Osseous structures are unchanged. Additional findings: None. IMPRESSION: 1. Persistent bilateral lower lobe airspace opacities, right greater than left. 2. Dobbhoff feeding tube tip coiled in the gastric body with the tip in the region of the gastric fu ndus. 3. Partial visualization of an IVC filter. 4. No pneumothorax.
[2020-09-20] MEDS: Morphine 2 MG/ML VIAL SLOW IVP PRN ×3 (08:29→19:55)
[2020-09-20] MEDS: Polyethylene Glycol 3350 17 GM Packet PO SCH (08:43)
[2020-09-20] MEDS: Senokot S 8.6-50 MG TAB PO SCH ×2 (08:43→20:08)
[2020-09-20] MEDS: Gabapentin 300 MG CAP PO SCH ×2 (08:44→20:08)
[2020-09-20] MEDS: Saccharomyces boulardii 250 MG CAP PO SCH ×2 (08:44→20:07)
[2020-09-20] MEDS: Famotidine/PF 20 mg/2ml Vial SLOW IVP SCH (08:45)
[2020-09-20] MEDS: cefTRIAXone\\ROCEPHIN 1 GM in Sodium Chloride 0.9% 100 ML IVPB SCH (10:17)
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
[2020-09-20 16:41] LABS: Anion Gap 15 mmol/L (10-20); BUN (Urea Nitrogen) 13 mg/dL (8.9-20.6); Calc. Creatinine Clearance 136 mL/min (70-130); Calcium 9.5 mg/dL (7.8-10.44); Carbon Dioxide 30 mmol/L (22-29); Chloride 100 mmol/L (98-107); Glucose 112 mg/dL (70-105); Magnesium 2.1 mg/dL (1.6-2.6); Phosphorus 4.5 mg/dL (2.3-4.7); Potassium 3.8 mmol/L (3.5-5.1); Sodium 141 mmol/L (136-145)
[2020-09-20] MEDS: Famotidine 20 MG TAB PER TUBE SCH (20:07)
[2020-09-21] MEDS: Furosemide 20 MG/2 ML VIAL SLOW IVP SCH (00:56)
[2020-09-21 04:36] LABS: #Eosinphils 0.7 thou/uL (0.0-0.7); #Lymphocytes 1.7 thou/uL (1.20-3.40); #Monocytes 0.9 thou/uL (0.11-0.59); #Neutrophils 7.1 thou/uL (1.40-6.50); %Basophils 0.2 % (0.0-1.0); %Eosinophils 6.8 % (0.0-10.0); %Lymphocytes 15.8 % (21.0-51.0); %Monocytes 8.9 % (0.0-10.0); %Neutrophils 68.3 % (42.0-75.0); Hemoglobin 12.8 g/dL (14.0-18.0); Mean Corpuscular HGB CONC 33.3 g/dL (32.0-36.0); Mean Corpuscular Hemoglobin 32.3 pg (27.0-31.0); Mean Platelet Volume 8.1 fL (7.4-10.4); Platelet Count 348 thou/uL (130-400); RBC Distribution Width 11.8 % (11.5-14.5); Red Blood Cell (RBC) Count 3.96 mill/uL (4.70-6.10); White Blood Cell (WBC) Count 10.4 thou/uL (4.8-10.8)
[2020-09-21 04:42] LABS: Anion Gap 17 mmol/L (10-20); BUN (Urea Nitrogen) 20 mg/dL (8.9-20.6); Calc. Creatinine Clearance 145 mL/min (70-130); Calcium 9.5 mg/dL (7.8-10.44); Carbon Dioxide 27 mmol/L (22-29); Chloride 101 mmol/L (98-107); Glucose 137 mg/dL (70-105); Magnesium 2.1 mg/dL (1.6-2.6); Phosphorus 5.1 mg/dL (2.3-4.7); Potassium 3.8 mmol/L (3.5-5.1); Sodium 141 mmol/L (136-145)
[2020-09-21] MEDS: traMADol HCl 50 MG TAB PO SCH ×5 (05:13→23:21)
[2020-09-21] MEDS: Acetaminophen 500 MG TAB PO SCH ×4 (05:14→23:20)
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
[2020-09-21] MEDS: Morphine 2 MG/ML VIAL SLOW IVP PRN (07:19)
[2020-09-21] MEDS: Gabapentin 300 MG CAP PO SCH ×2 (10:08→22:11)
[2020-09-21] MEDS: Famotidine 20 MG TAB PER TUBE SCH ×2 (10:08→22:12)
[2020-09-21] MEDS: Senokot S 8.6-50 MG TAB PO SCH ×2 (10:08→22:12)
[2020-09-21] MEDS: Polyethylene Glycol 3350 17 GM Packet PO SCH (10:09)
[2020-09-21] MEDS: Saccharomyces boulardii 250 MG CAP PO SCH ×2 (10:09→22:10)
[2020-09-21] MEDS: cefTRIAXone\\ROCEPHIN 1 GM in Sodium Chloride 0.9% 100 ML IVPB SCH (10:09)
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
[2020-09-21] MEDS: levETIRAcetam in NS 1,000 MG in Premix Bag 1 BAG IVPB SCH ×2 (13:08→23:21)
--- NOTE | 2020-09-21 14:51 | EKG ---
Test Reason : Blood Pressure : / mmHG Vent. Rate : 074 BPM Atrial Rate : 072 BPM P-R Int : 122 ms QRS Dur : 082 ms QT Int : 352 ms P-R-T Axes : 046 072 031 degrees QTc Int : 390 ms Poor data quality, interpretation may be adversely affected Normal sinus rhythm Otherwise normal ECG Confirmed by SUMMER HAWTHORNE, SAKSHI ([id number]), market editor WARD NO ([id number]) on 09/21/2020 2:50:58 PM Referred By: ISABEL WHEELER Confirmed By:SAKSHI WHEELER MD
--- NOTE | 2020-09-21 19:26 | RAD ---
Exam: 1 view abdomen HISTORY: Confirm Dobbhoff feeding tube placement FINDINGS: Dobbhoff feeding tube projects over the gastric cardia. Nonspecific bowel gas pattern. No a cute osseous abnormalities. Note is made of a IVC filter IMPRESSION: Dobbhoff feeding tube as above. Repositioning and advancement is recommended.
--- NOTE | 2020-09-21 21:28 | RAD ---
Exam: 1 view abdomen HISTORY: Evaluate Dobbhoff feeding tube location FINDINGS: Advancement of Dobbhoff feeding tube. Distal tip is likely now in the fourth portion of the duodenum. IMPRESSION: Interval advancement of Dobbhoff feeding tube.
[2020-09-22 05:14] LABS: #Basophils 0.1 thou/uL (0.0-0.2); #Eosinphils 0.7 thou/uL (0.0-0.7); #Lymphocytes 1.8 thou/uL (1.20-3.40); #Monocytes 1.3 thou/uL (0.11-0.59); #Neutrophils 9.9 thou/uL (1.40-6.50); %Basophils 0.6 % (0.0-1.0); %Eosinophils 5.2 % (0.0-10.0); %Lymphocytes 13.1 % (21.0-51.0); %Monocytes 9.4 % (0.0-10.0); %Neutrophils 71.7 % (42.0-75.0); Hemoglobin 13.2 g/dL (14.0-18.0); Mean Corpuscular HGB CONC 32.3 g/dL (32.0-36.0); Mean Corpuscular Hemoglobin 31.5 pg (27.0-31.0); Mean Corpuscular Volume 97.3 fL (78.0-98.0); Mean Platelet Volume 7.8 fL (7.4-10.4); Platelet Count 412 thou/uL (130-400); RBC Distribution Width 11.7 % (11.5-14.5); Red Blood Cell (RBC) Count 4.18 mill/uL (4.70-6.10); White Blood Cell (WBC) Count 13.8 thou/uL (4.8-10.8)
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
[2020-09-22 06:26] LABS: Anion Gap 18 mmol/L (10-20); BUN (Urea Nitrogen) 26 mg/dL (8.9-20.6); Calc. Creatinine Clearance 143 mL/min (70-130); Calcium 9.3 mg/dL (7.8-10.44); Carbon Dioxide 20 mmol/L (22-29); Chloride 105 mmol/L (98-107); Glucose 127 mg/dL (70-105); Sodium 139 mmol/L (136-145)
[2020-09-22] MEDS: Acetaminophen 500 MG TAB PO SCH ×3 (06:28→18:05)
[2020-09-22] MEDS: traMADol HCl 50 MG TAB PO SCH ×3 (06:29→17:49)
[2020-09-22] MEDS: Saccharomyces boulardii 250 MG CAP PO SCH ×2 (09:51→21:54)
[2020-09-22] MEDS: Polyethylene Glycol 3350 17 GM Packet PO SCH (09:51)
[2020-09-22] MEDS: Famotidine 20 MG TAB PER TUBE SCH ×2 (09:51→21:54)
[2020-09-22] MEDS: Senokot S 8.6-50 MG TAB PO SCH ×2 (09:51→21:54)
[2020-09-22] MEDS: Gabapentin 300 MG CAP PO SCH ×2 (09:52→21:54)
[2020-09-22] MEDS: cefTRIAXone\\ROCEPHIN 1 GM in Sodium Chloride 0.9% 100 ML IVPB SCH (09:54)
[2020-09-22] MEDS: levETIRAcetam in NS 1,000 MG in Premix Bag 1 BAG IVPB SCH (12:52)
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
[2020-09-23] MEDS: levETIRAcetam in NS 1,000 MG in Premix Bag 1 BAG IVPB SCH (00:17)
[2020-09-23] MEDS: Acetaminophen 500 MG TAB PO SCH ×2 (00:18→05:35)
[2020-09-23] MEDS: traMADol HCl 50 MG TAB PO SCH ×2 (00:18→05:35)
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
[2020-09-23 09:03] LABS: Band 2 % (5-11); Eosinophils 6 % (0-10); Hemoglobin 12.8 g/dL (14.0-18.0); Lymphocytes 27 % (21-51); MDiff Complete? YES; Mean Corpuscular HGB CONC 33.2 g/dL (32.0-36.0); Mean Corpuscular Hemoglobin 32.6 pg (27.0-31.0); Mean Corpuscular Volume 98.2 fL (78.0-98.0); Mean Platelet Volume 7.8 fL (7.4-10.4); Monocytes 5 % (0-10); Neutrophil 59 % (42-75); Platelet Count 468 thou/uL (130-400); Platelet Morphology Comment Appears Increased; RBC Distribution Width 11.6 % (11.5-14.5); RBC Morphology Normal; Reactive Lymphocytes 1 % (0-10); Red Blood Cell (RBC) Count 3.92 mill/uL (4.70-6.10); White Blood Cell (WBC) Count 9.1 thou/uL (4.8-10.8)
[2020-09-23] MEDS: cefTRIAXone\\ROCEPHIN 1 GM in Sodium Chloride 0.9% 100 ML IVPB SCH (09:22)
[2020-09-23] MEDS: Gabapentin 300 MG CAP PO SCH ×2 (09:24→20:22)
[2020-09-23] MEDS: Senokot S 8.6-50 MG TAB PO SCH ×2 (09:24→20:23)
[2020-09-23] MEDS: Famotidine 20 MG TAB PER TUBE SCH ×2 (09:24→20:21)
[2020-09-23] MEDS: Saccharomyces boulardii 250 MG CAP PO SCH ×2 (09:24→20:21)
[2020-09-23] MEDS: Polyethylene Glycol 3350 17 GM Packet PO SCH (09:29)
[2020-09-23 12:37] VITALS: BMI 26.4
[2020-09-23] MEDS: Acetaminophen 325 MG TAB PO SCH ×3 (12:40→23:52)
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
[2020-09-23] MEDS: levETIRAcetam 500 MG TAB PO SCH (20:22)
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
[2020-09-24 02:17] LABS: SARS-CoV-2 MS2 Positive; SARS-CoV-2 N Gene Negative; SARS-CoV-2 S Gene Negative; SARS-CoV-2 by NAA Not Detected (NotDetected); SARS-CoV-2 orf1ab Negative
[2020-09-24] MEDS: Acetaminophen 325 MG TAB PO SCH ×3 (05:17→17:15)
[2020-09-24] MEDS: Senokot S 8.6-50 MG TAB PO SCH ×2 (08:50→19:34)
[2020-09-24] MEDS: Polyethylene Glycol 3350 17 GM Packet PO SCH (08:51)
[2020-09-24] MEDS: Saccharomyces boulardii 250 MG CAP PO SCH (08:51)
[2020-09-24] MEDS: Gabapentin 300 MG CAP PO SCH (08:51)
[2020-09-24] MEDS: Famotidine 20 MG TAB PER TUBE SCH ×2 (08:51→19:35)
[2020-09-24] MEDS: levETIRAcetam 500 MG TAB PO SCH ×2 (08:51→19:35)
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
[2020-09-24] MEDS: Acetaminophen/Codeine 30-300mg Tablet PO PRN (19:35)
[2020-09-24] MEDS ORDERED: Melatonin 3 MG TAB PO SCH (21:00)
[2020-09-25] MEDS: Acetaminophen 325 MG TAB PO SCH ×4 (00:01→17:19)
[2020-09-25] MEDS: Acetaminophen/Codeine 30-300mg Tablet PO PRN (04:18)
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
[2020-09-25] MEDS: Polyethylene Glycol 3350 17 GM Packet PO SCH (08:41)
[2020-09-25] MEDS: Senokot S 8.6-50 MG TAB PO SCH ×2 (08:41→20:06)
[2020-09-25] MEDS: levETIRAcetam 500 MG TAB PO SCH ×2 (08:42→20:06)
[2020-09-25] MEDS: Famotidine 20 MG TAB PER TUBE SCH ×2 (08:42→20:06)
[2020-09-25] MEDS: Gabapentin 300 MG CAP PO SCH (08:42)
[2020-09-26] MEDS: Acetaminophen 325 MG TAB PO SCH ×6 (00:16→23:52)
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
[2020-09-26] MEDS: Famotidine 20 MG TAB PER TUBE SCH ×2 (09:28→21:32)
[2020-09-26] MEDS: Polyethylene Glycol 3350 17 GM Packet PO SCH (09:28)
[2020-09-26] MEDS: Gabapentin 300 MG CAP PO SCH (09:29)
[2020-09-26] MEDS: Senokot S 8.6-50 MG TAB PO SCH ×2 (09:31→21:31)
[2020-09-26] MEDS: levETIRAcetam 500 mg/5 ml Oral Solution PO SCH ×2 (09:54→21:32)
[2020-09-27] MEDS: Acetaminophen 325 MG TAB PO SCH ×3 (05:28→18:56)
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
[2020-09-27] MEDS: Famotidine 20 MG TAB PER TUBE SCH ×2 (08:31→19:50)
[2020-09-27] MEDS: Gabapentin 300 MG CAP PO SCH (08:31)
[2020-09-27] MEDS: Senokot S 8.6-50 MG TAB PO SCH ×2 (08:31→19:28)
[2020-09-27] MEDS: Polyethylene Glycol 3350 17 GM Packet PO SCH (08:32)
[2020-09-27] MEDS: levETIRAcetam 500 mg/5 ml Oral Solution PO SCH ×2 (08:32→19:50)
[2020-09-27 16:46] LABS: SARS-CoV-2 MS2 Positive; SARS-CoV-2 N Gene Negative; SARS-CoV-2 S Gene Negative; SARS-CoV-2 by NAA Not Detected (NotDetected); SARS-CoV-2 orf1ab Negative
[2020-09-27 19:40] VITALS: BP 137/80; TEMP 98.1
== END 2020-09-27 21:15 | DRG 955 ==
LOC: ERS 11:25 → CCU 12:33 → SURG A 09-21 15:47
PROVIDERS: ADMIT Specialist; ATTEND Specialist
PROC: 3E0234Z Introduction of Serum, Toxoid and Vaccine into Muscle, Percutaneous Approach (ICD-10-PCS; principal; 2020-09-13)
PROC: 0L880ZZ Division of Left Hand Tendon, Open Approach (ICD-10-PCS; 2020-09-13)
PROC: 00H032Z Insertion of Monitoring Device into Brain, Percutaneous Approach (ICD-10-PCS; 2020-09-13)
PROC: 5A1955Z Respiratory Ventilation, Greater than 96 Consecutive Hours (ICD-10-PCS; 2020-09-13)
PROC: 0W9B30Z Drainage of Left Pleural Cavity with Drainage Device, Percutaneous Approach (ICD-10-PCS; 2020-09-13)
PROC: 4A103BD Monitoring of Intracranial Pressure, Percutaneous Approach (ICD-10-PCS; 2020-09-13)
PROC: 0B9J8ZZ Drainage of Left Lower Lung Lobe, Via Natural or Artificial Opening Endoscopic (ICD-10-PCS; 2020-09-14)
PROC: 0B9C8ZZ Drainage of Right Upper Lung Lobe, Via Natural or Artificial Opening Endoscopic (ICD-10-PCS; 2020-09-14)
PROC: 0B9G8ZZ Drainage of Left Upper Lung Lobe, Via Natural or Artificial Opening Endoscopic (ICD-10-PCS; 2020-09-14)
PROC: 0B938ZZ Drainage of Right Main Bronchus, Via Natural or Artificial Opening Endoscopic (ICD-10-PCS; 2020-09-14)
PROC: 0B9J8ZZ Drainage of Left Lower Lung Lobe, Via Natural or Artificial Opening Endoscopic (ICD-10-PCS; 2020-09-16)
PROC: 0B9C8ZZ Drainage of Right Upper Lung Lobe, Via Natural or Artificial Opening Endoscopic (ICD-10-PCS; 2020-09-16)
PROC: 0B9G8ZZ Drainage of Left Upper Lung Lobe, Via Natural or Artificial Opening Endoscopic (ICD-10-PCS; 2020-09-16)
PROC: 0B938ZZ Drainage of Right Main Bronchus, Via Natural or Artificial Opening Endoscopic (ICD-10-PCS; 2020-09-16)
PROC: 0B9F8ZZ Drainage of Right Lower Lung Lobe, Via Natural or Artificial Opening Endoscopic (ICD-10-PCS; 2020-09-16)
PROC: 06H03DZ Insertion of Intraluminal Device into Inferior Vena Cava, Percutaneous Approach (ICD-10-PCS; 2020-09-18)
DX: S06.369A Traumatic hemorrhage of cerebrum, unspecified, with loss of consciousness of unspecified duration, initial encounter (principal); S32.10XA Unspecified fracture of sacrum, initial encounter for closed fracture; Z23 Encounter for immunization; Z20.828 Contact with and (suspected) exposure to other viral communicable diseases; J96.01 Acute respiratory failure with hypoxia; J69.0 Pneumonitis due to inhalation of food and vomit; S32.511A Fracture of superior rim of right pubis, initial encounter for closed fracture; S27.0XXA Traumatic pneumothorax, initial encounter; S22.42XA Multiple fractures of ribs, left side, initial encounter for closed fracture; D62 Acute posthemorrhagic anemia; R40.2432 Glasgow coma scale score 3-8, at arrival to emergency department; S61.412A Laceration without foreign body of left hand, initial encounter; R40.20 Unspecified coma; E83.42 Hypomagnesemia; T79.6XXA Traumatic ischemia of muscle, initial encounter; S56.108A Unspecified injury of flexor muscle, fascia and tendon of left little finger at forearm level, initial encounter; E83.39 Other disorders of phosphorus metabolism; E87.6 Hypokalemia; V43.62XA Car passenger injured in collision with other type car in traffic accident, initial encounter
CPT/HCPCS: 31624; 36415; 36416; 36600; 37191; 70450; 70496; 70498; 71045; 71260; 71275; 72125; 72170; 74018; 74177; 76942; 80048; 80053; 80177; 80185; 80306; 80307; 81003; 81015; 82550; 82805; 83605; 83690; 83735; 84100; 84146; 85007; 85025; 85027; 85610; 85730; 86850; 86900; 86901; 87070; 87205; 87635; 90471; 90715; 93005; 94002; 94003; 94640; 96374; 96375; 96376; C1880; G0390; J0690; J0696; J1644; J1940; J1953; J1956; J2060; J2250; J2270; J2405; J2704; J3010; J3360; J3475; J3490; J7050; J7620; P9045; Q9967; S0020; S0028; U0002; U0003